=== PATIENT | female | born 1980 | race American Indian/Alaskan Native ===

== ENCOUNTER 2020-11-24 10:57 | Outpatient (CLI) | payer BC ==
--- NOTE | 2020-11-24 14:28 | XRay Report ---
CHEST 2 VIEWS INDICATION: ASTHMA, INTRINSIC, MILD INTERMITTENT, UNCOMPLICATED. COMPARISON: 09/22/2013 FINDINGS: Support devices: None. Heart: Within normal limits. Lungs/pleura: No acute air space or interstitial disease. No pneumothorax. Additional findings: None. IMPRESSION: No acute findings. Unremarkable chest films. Signer Name: Earl Baugh Jr, MD Signed: 11/24/2020 2:24 PM Workstation Name: [id number]
== END 2020-11-24 10:58 | disposition home or self-care (01) ==
LOC: SPVIMAG 10:57
PROVIDERS: ATTEND Internal Medicine
DX: J45.20 Mild intermittent asthma, uncomplicated (principal)
CPT/HCPCS: 71046